=== PATIENT | female | born 1945 | race Two or more races ===

== ENCOUNTER 2020-01-17 16:33 | Emergency (ER) | payer OTHER ==
[~2020-01-17] VITALS: Ht 165.1 cm; Wt 84.8 kg
[2020-01-17 17:51] LABS: Basophils # (auto) 0.1 10 ^3/uL (0-0.2); Eosinophils # (auto) 0.1 10 ^3/uL (0-0.8); Hemoglobin 9.2 g/dL (12.2-16.2); Lymphocytes # (auto) 1.1 10 ^3/uL (0.4-5.4); Neutrophils # (auto) 2.6 10 ^3/uL (1.6-8.6); White Blood Cell 4.4 10^3/uL (4.4-10.8)
[2020-01-17 17:53] LABS: Basophils % (auto) 1.2 % (0.0-2.0); Eosinophils % (auto) 2.4 % (0.0-7.0); Hematocrit 29.7 % (36.0-46.0); Lymphocytes % (auto) 25.7 % (10.0-50.0); Mean Corpuscular Hemoglobin 21.9 pg (28.0-32.0); Mean Corpuscular Hgb Conc. 31.1 g/dL (32.0-36.0); Mean Corpuscular Volume 70.5 fL (80.0-100.0); Monocytes # (auto) 0.6 10 ^3/uL (0-1.3); Monocytes % (auto) 12.5 % (0.0-12.0); Neutrophils % (auto) 58.2 % (37.0-80.0); Nucleated Red Blood Cells % 0.1 %; Platelet Count (auto) 276 10^3/uL (140-450); Red Blood Cells 4.21 10^6/uL (4.0-5.20); Red Cell Distribution Width 18.6 % (11.8-14.3)
[2020-01-17 17:55] VITALS: BP 150/72
[2020-01-17 18:10] LABS: Alanine Aminotransferase 36 U/L (13-56); Albumin 3.4 g/dL (3.4-5.0); Anion Gap 4 (5-15); Blood Urea Nitrogen 14 mg/dL (7-18); Calcium 8.2 mg/dL (8.5-10.1); Carbon Dioxide 26 mmol/L (21-32); Chloride 110 mmol/L (98-107); Glucose 85 mg/dL (74-106); Magnesium 2.7 mg/dL (1.6-2.6); Potassium 4.3 mmol/L (3.5-5.1); Sodium 140 mmol/L (136-145)
[2020-01-17 18:15] LABS: Alkaline Phosphatase 99 U/L (45-117); Aspartate Aminotransferase 45 U/L (15-37); BUN/Creatinine Ratio 13.5; Bilirubin, Total 0.3 mg/dL (0.2-1.0); GFR African American 66 mL/min; GFR Non-African American 55 mL/min; Total Protein 7.2 g/dL (6.4-8.2)
== END 2020-01-17 20:50 | disposition home or self-care (01) ==
LOC: ER 16:33
DX: R06.02 Shortness of breath (principal); D50.9 Iron deficiency anemia, unspecified; I10 Essential (primary) hypertension; E78.5 Hyperlipidemia, unspecified; Z20.828 Contact with and (suspected) exposure to other viral communicable diseases
CPT/HCPCS: 36415; 71045; 80053; 83735; 84484; 85025; 93005; 99285; U0003

== ENCOUNTER 2024-02-07 11:10 | Inpatient (IN) | payer OTHER ==
[~2024-02-07] VITALS: Ht 165.1 cm; Wt 62.5 kg
[2024-02-07] MEDS: SODIUM CHLORIDE 0.9% 1,000 ML IV ONE ×2 (11:42→15:24)
[2024-02-07 11:51] LABS: Basophils # (auto) 0 10 ^3/uL (0-0.2); Basophils % (auto) 0.4 % (0.0-2.0); Eosinophils # (auto) 0 10 ^3/uL (0-0.8); Hematocrit 31.5 % (36.0-46.0); Hemoglobin 10.2 g/dL (12.2-16.2); Lymphocytes # (auto) 0.3 10 ^3/uL (0.4-5.4); Lymphocytes % (auto) 3.6 % (10.0-50.0); Mean Corpuscular Hemoglobin 28.7 pg (28.0-32.0); Mean Corpuscular Hgb Conc. 32.3 g/dL (32.0-36.0); Mean Corpuscular Volume 88.9 fL (80.0-100.0); Monocytes # (auto) 0.5 10 ^3/uL (0-1.3); Monocytes % (auto) 6.4 % (0.0-12.0); Neutrophils # (auto) 7.4 10 ^3/uL (1.6-8.6); Neutrophils % (auto) 89.6 % (37.0-80.0); Nucleated Red Blood Cells % 0.1 %; Red Blood Cells 3.55 10^6/uL (4.0-5.20); Red Cell Distribution Width 14.1 % (11.8-14.3); White Blood Cell 8.2 10^3/uL (4.4-10.8)
[2024-02-07 12:11] LABS: Alanine Aminotransferase 21 U/L (7-40); Albumin 3.3 g/dL (3.2-4.8); Alkaline Phosphatase 132 U/L (46-116); Anion Gap 8 (5-15); Aspartate Aminotransferase 21 U/L (13-40); BUN/Creatinine Ratio 24.1 (10.0-20.0); Bilirubin, Total 0.4 mg/dL (0.2-1.0); Blood Urea Nitrogen 26 mg/dL (9-23); Calcium 8.3 mg/dL (8.7-10.4); Carbon Dioxide 26 mmol/L (20-30); Chloride 107 mmol/L (98-107); Glucose 110 mg/dL (74-106); Potassium 4.4 mmol/L (3.5-5.1); Sodium 141 mmol/L (136-145); Total Protein 5.5 g/dL (5.7-8.2)
[2024-02-07 12:42] LABS: Urine Amorphous Crystal FEW /hpf (None Seen); Urine Bacteria MANY /hpf (None Seen); Urine Blood Negative /uL (Negative); Urine Budding Yeast MODERATE /hpf (None Seen); Urine Clarity Hazy (Clear); Urine Color Yellow (Yellow); Urine Protein, UAD TRACE (Negative); Urine Specific Gravity 1.024 (1.001-1.035); Urine Urobilinogen 3 mg/dL (Negative); Urine WBC 3 /hpf (0 - 5); Urine pH 5.5 (5.0-9.0)
[2024-02-07] MEDS: cefTRIAXone 1GM/50ML D5W 50 ML IV ONE (13:28)
[2024-02-07] MEDS: HYDROcodone-ACET 5/325MG TAB PO ONE (16:56)
[2024-02-07 18:15] VITALS: PULSE 78; RESP 12; O2SAT 94
[2024-02-07 21:00] VITALS: BP 94/51; PULSE 77; RESP 18; TEMP 98.2; O2SAT 94
[2024-02-07] MEDS ORDERED: ONDANSETRON HCL 4 MG/2 ML VIAL IV PRN (21:00)
[2024-02-07] MEDS: ACETAMINOPHEN 325 MG TAB PO PRN (21:06)
[2024-02-07] MEDS: IOHEXOL 300 MG/ML 100ML BOTTLE IJ ONE (21:38)
[2024-02-07] MEDS: OMNIPAQUE 12mg/ml 500ml ORAL SOLUTION PO ONE (21:39)
[2024-02-07] MEDS ORDERED: HYDR-4798 PO (23:36)
[2024-02-08] VITALS (12 sets, daily range): BP systolic 114–129; BP diastolic 66–76; PULSE 69–84; RESP 11–19; TEMP 97.4–97.5; O2SAT 95–100
[2024-02-08] MEDS ORDERED: BUPR150T8 PO (00:09)
[2024-02-08] MEDS ORDERED: FERR28TA4 PO (00:10)
[2024-02-08] MEDS ORDERED: QUET25TA37 PO (00:10)
[2024-02-08] MEDS: IPRATROPIUM BROM 0.5 MG/2.5ML INH SOL NEB SCH (00:54)
[2024-02-08] MEDS: SODIUM CHLORIDE 0.9% 1,000 ML IV SCH (02:10)
[2024-02-08 08:47] LABS: INR 1.29 (0.9-1.15); Prothrombin Time 13.4 sec (9.3-11.8)
[2024-02-08] MEDS: cefTRIAXone 1GM/50ML D5W 50 ML IV SCH (10:06)
[2024-02-08] MEDS: FAMOTIDINE 20 MG TAB PO SCH (10:06)
[2024-02-08] MEDS ORDERED: QUEtiapine FUMARATE 25 MG TAB PO SCH (18:00)
[2024-02-08] MEDS: HYDROcodone-ACET 10/325MG TAB PO PRN (18:35)
[2024-02-08] MEDS: QUEtiapine FUMARATE 25 MG TAB PO SCH (20:07)
[2024-02-09] VITALS (8 sets, daily range): BP systolic 121–143; BP diastolic 65–80; PULSE 65–79; RESP 17–20; TEMP 97.6–98; O2SAT 90–96
[2024-02-09] MEDS ORDERED: DOXY-448 PO (12:50)
[2024-02-09] MEDS ORDERED: PRED20TA2 PO (12:50)
== END 2024-02-09 17:00 | disposition home or self-care (01) | DRG 177 ==
LOC: EDBD 11:10 → ER 11:10 → TELE 20:55 → TELE-WESTW 02-08 16:17
PROVIDERS: ADMIT Nurse Practitioner Family; ATTEND Nurse Practitioner Family
DX: J15.69 Pneumonia due to other Gram-negative bacteria (principal); J96.01 Acute respiratory failure with hypoxia; J44.0 Chronic obstructive pulmonary disease with (acute) lower respiratory infection; N12 Tubulo-interstitial nephritis, not specified as acute or chronic; J43.9 Emphysema, unspecified; I10 Essential (primary) hypertension; E78.5 Hyperlipidemia, unspecified; Z96.641 Presence of right artificial hip joint; Z90.710 Acquired absence of both cervix and uterus; Z85.43 Personal history of malignant neoplasm of ovary; Z79.899 Other long term (current) drug therapy
CPT/HCPCS: 36415; 71045; 71260; 74177; 80053; 81001; 84484; 85025; 85610; 85730; 87086; 87088; 87186; 93005; 94640; 96361; 96365; G0378